=== PATIENT | male | born 1985 | race Caucasian/White ===

== ENCOUNTER 2018-08-04 09:47 | Outpatient (RCR) | payer SELFPAY ==
[2018-08-04] MEDS ORDERED: NS(*) 0.9% 250 ML BAG 250 ML IVPB PRN (09:55)
[2018-08-04] MEDS ORDERED: NS(*) 0.9% 100 ML BAG 100 ML IVPB PRN (09:55)
[2018-08-04] MEDS ORDERED: HEPARIN FLSH (PORT) 500 UN/5ML IVP PRN (09:55)
[2018-08-04] MEDS ORDERED: DEXTROSE 5%(*) 100 ML BAG 100 ML IVPB PRN (09:55)
[2018-08-04] MEDS ORDERED: ALTEPLASE RECOMB 2 MG VIAL IVP PRN (09:55)
[2018-08-04] MEDS ORDERED: LIDOCAINE/SOD BICARB 8.4% SYR ID PRN (09:55)
[2018-08-04] MEDS ORDERED: WATER FOR INJ,STERILE 20 ML IVP PRN (09:55)
[2018-08-04 10:05] VITALS: BP 129/90
== END 2018-08-19 09:14 | disposition home or self-care (01) ==
LOC: SPU 09:47
PROVIDERS: ATTEND Nurse Practitioner
DX: C38.3 Malignant neoplasm of mediastinum, part unspecified (principal)
CPT/HCPCS: 96523